=== PATIENT | female | born 1945 | race Caucasian/White ===

== ENCOUNTER 2022-03-05 14:24 | Outpatient (CLI) | payer MEDICARE | END 2022-03-05 14:25 | disposition home or self-care (01) | LOC: CSHMAMMO 14:24 | PROVIDERS: ATTEND Nurse Practitioner Adult Health | DX: Z13.820 Encounter for screening for osteoporosis (principal); Z78.0 Asymptomatic menopausal state; M81.0 Age-related osteoporosis without current pathological fracture; M85.852 Other specified disorders of bone density and structure, left thigh | CPT/HCPCS: 77080 ==

== ENCOUNTER 2022-08-01 13:52 | Outpatient (CLI) | payer MEDICARE, OTHER | END 2022-08-01 13:53 | disposition home or self-care (01) | LOC: CSHMAMMO 13:52 | PROVIDERS: ATTEND Nurse Practitioner Adult Health | DX: Z12.31 Encounter for screening mammogram for malignant neoplasm of breast (principal); Z80.3 Family history of malignant neoplasm of breast | CPT/HCPCS: 77063; 77067 ==

== ENCOUNTER 2023-09-03 14:49 | Outpatient (CLI) | payer OTHER | END 2023-09-03 14:50 | disposition home or self-care (01) | LOC: CSHMAMMO 14:49 | PROVIDERS: ATTEND Internal Medicine | DX: Z12.31 Encounter for screening mammogram for malignant neoplasm of breast (principal); Z80.3 Family history of malignant neoplasm of breast | CPT/HCPCS: 77063; 77067 ==

== ENCOUNTER 2024-09-05 15:03 | Outpatient (CLI) | payer OTHER | END 2024-09-05 15:04 | disposition home or self-care (01) | LOC: CSHMAMMO 15:03 | PROVIDERS: ATTEND Internal Medicine | DX: Z12.31 Encounter for screening mammogram for malignant neoplasm of breast (principal); Z80.3 Family history of malignant neoplasm of breast | CPT/HCPCS: 77063; 77067 ==

== ENCOUNTER 2024-10-28 14:21 | Outpatient (CLI) | payer OTHER | END 2024-10-28 14:22 | disposition home or self-care (01) | LOC: CSHMAMMO 14:21 | PROVIDERS: ATTEND Internal Medicine | DX: Z78.0 Asymptomatic menopausal state (principal); M85.852 Other specified disorders of bone density and structure, left thigh; M81.0 Age-related osteoporosis without current pathological fracture | CPT/HCPCS: 77080 ==

== ENCOUNTER 2025-09-07 14:07 | Outpatient (CLI) | payer OTHER | END 2025-09-07 14:08 | disposition home or self-care (01) | LOC: CSHMAMMO 14:07 | PROVIDERS: ATTEND Internal Medicine | DX: Z12.31 Encounter for screening mammogram for malignant neoplasm of breast (principal); Z80.3 Family history of malignant neoplasm of breast | CPT/HCPCS: 77063; 77067 ==